=== PATIENT | female | born 1980 | race Caucasian/White ===

== ENCOUNTER 2020-05-06 00:08 | Emergency (ER) | payer BC, OTHER ==
--- NOTE | 2020-05-06 00:40 | ER Document Report ---
ED General - General Chief Complaint: Abdominal Pain Stated Complaint: PAIN Time Seen by Provider: 05/06/20 00:21 Primary Care Provider: MARCIE SANDS PA-C [PHYSICIAN [employer]] - 05/07/20 ROLAN ORDOÑEZ NP [Primary Care Provider] - Follow up as needed - HPI Notes: 39-year-old female with past medical history for cholecystectomy, depression to the emergency department via EMS with complaints of acute onset left upper quadrant abdominal pain. It started while she was on the telephone. She states that it comes in waves. When it comes on it is very intense and she cannot get comfortable. She denies shortness of breath with it. She denies any falls. She denies any nausea or vomiting. She states she has never had a kidney stone. Denies any blood in her urine or urinary complaints. Denies any diarrhea. She was given 50 mcg of fentanyl via EMS. She states that did not really work. She states that she does not want any further pain medicine. - Related Data Allergies/Adverse Reactions: aspirin Allergy (Verified 05/06/20 01:10) Home Medications: Bupropion Past Medical History - General Information source: Patient, Relative - - Social History Smoking Status: Current Every Day Smoker Frequency of alcohol use: Occasional Drug Abuse: None Family History: Reviewed & Not Pertinent Patient has homicidal ideation: No Review of Systems - Review of Systems Constitutional: denies: Chills, Fever EENT: No symptoms reported Cardiovascular: denies: Chest pain, Palpitations, Heart racing, Dizziness, Lightheaded Respiratory: denies: Cough, Short of breath Gastrointestinal: Abdominal pain. denies: Diarrhea, Nausea, Vomiting Genitourinary: Flank pain - LUQ radiating around to the left flank. denies: Frequency, Hematuria Musculoskeletal: denies: Back pain, Joint pain, Joint swelling Skin: See HPI Neurological/Psychological: denies: Seizure, Lost consciousness, Headaches -: Yes All other systems reviewed and negative Physical Exam - Vital signs Vitals: Temp Pulse Resp BP Pulse Ox 97.5 F 95 20 116/61 99 05/06/20 00:13 05/06/20 00:13 05/06/20 00:13 05/06/20 00:13 05/06/20 00:13 Interpretation: Normal - General General appearance: Appears well In distress: Moderate Notes: moderate pain distress. It appears to come in waves. severe but then will calm down. - HEENT Head: Normocephalic, Atraumatic Eyes: Normal Pupils: PERRL Neck: Normal, Supple - Respiratory Respiratory status: No respiratory distress Chest status: Nontender Breath sounds: Normal. No: Rales, Rhonchi, Wheezing Chest palpation: Normal - Cardiovascular Rhythm: Regular Heart sounds: Normal auscultation Murmur: No - Abdominal Inspection: Normal Distension: No distension Bowel sounds: Normal Tenderness: Tender Notes: mild TTP over the LUQ. no CVAT. negative Silva's sign, negative McBurney's point. - Back Back: Normal, Nontender. No: CVA tenderness - Neurological Neuro grossly intact: Yes Cognition: Normal Orientation: AAOx4 [place] Coma Scale Eye Opening: Spontaneous [place] Coma Scale Verbal: Oriented [place] Coma Scale Motor: Obeys Commands [place] Coma Scale Total: 15 Speech: Normal Cranial nerves: Normal Cerebellar coordination: Normal Motor strength normal: LUE, RUE, LLE, RLE Additional motor exam normals: Equal client success specialist Sensory: Normal - Psychological Associated symptoms: Agitated - patient is intially irritable during interview, Anxious - Skin Skin Temperature: Warm Skin Moisture: Dry Skin Color: Normal Course - Re-evaluation Re-evalutation: Impression: Left upper quadrant abdominal pain. Started suddenly tonight. Lab work was very reassuring except for one elevated liver enzyme. Patient has a reassuring abdominal CT. There is no stones or evidence of infection, small bowel obstruction or any other acute abnormality. Suspect that this could be reflux type picture. Involve the patient several medicines to include pain medicines and a full GI cocktail. She declined them all but did except Maalox. We will have her follow-up with her primary care on Thursday without fail. She is to return if she has worsening symptoms here. Patient agrees with the plan. - Vital Signs Vital signs: Temp Pulse Resp BP Pulse Ox 97.5 F 81 14 116/64 100 05/06/20 02:53 05/06/20 02:53 05/06/20 02:53 05/06/20 02:53 05/06/20 02:53 - Laboratory Result Diagrams: 05/06/20 00:42 05/06/20 00:42 Laboratory results interpreted by me: 05/06/20 05/06/20 00:42 00:48 Carbon Dioxide 19 L AST 54 H Urine Ketones TRACE H - EKG Interpretation by Me Additional EKG results interpreted by me: Rate: 76 Rhythm: Sinus rhythm Interpretation: No STEMI, no ST changes, normal axis, no LVH. There is no comparison. Discharge - Discharge Clinical Impression: LUQ abdominal pain Condition: Stable Disposition: HOME, SELF-CARE Instructions: Abdominal Pain ([facility]) Additional Instructions: Follow-up with your primary care without fail on Thursday. Return if you have worsening symptoms such as worsening pain, fevers, passing out, chest pain. Reduce your coffee intake, any acidic foods or spicy foods. Wait 2 hours before laying down after eating. No alcohol. Referrals: ROLAN ORDOÑEZ NP [Primary Care Provider] - Follow up as needed MARCIE SANDS PA-C [PHYSICIAN [employer]] - 05/07/20
[2020-05-06 00:53] LABS: ABSOLUTE EOSINOPHILS # (AUTO) 0.1 10^3/uL (0.0-0.6); ABSOLUTE LYMPHOCYTES (AUTO) 3.9 10^3/uL (0.5-4.7); ABSOLUTE MONOCYTES (AUTO) 0.8 10^3/uL (0.1-1.4); ABSOLUTE NEUT (AUTO) 4.5 10^3/uL (1.7-8.2); BASOPHILS % (AUTO) 0.2 % (0-2); EOSINOPHILS % (AUTO) 1.3 % (0-6); HEMATOCRIT 39.3 % (36.0-47.0); HEMOGLOBIN 13.6 g/dL (12.0-15.5); LYMPHOCYTES % (AUTO) 41.8 % (13-45); MEAN CORPUSCULAR HEMOGLOBIN 32.6 pg (27.0-33.4); MEAN CORPUSCULAR HGB CONC 34.5 g/dL (32.0-36.0); MEAN CORPUSCULAR VOLUME 94 fl (80-97); MONOCYTES % (AUTO) 8.4 % (3-13); PLATELET COUNT 242 10^3/uL (150-450); RED BLOOD COUNT 4.16 10^6/uL (3.72-5.28); RED CELL DISTRIBUTION WIDTH 13.3 % (11.5-14.0); SEGMENTED NEUTROPHILS % (AUTO) 48.3 % (42-78); TOTAL CELLS COUNTED % (AUTO) 100 %; WHITE BLOOD COUNT 9.4 10^3/uL (4.0-10.5)
[2020-05-06 01:03] LABS: APPEARANCE,URINE CLEAR; BILIRUBIN,URINE NEGATIVE (NEGATIVE); COLOR,URINE STRAW; GLUCOSE, URINE NEGATIVE (NEGATIVE); KETONES,URINE TRACE mg/dL (NEGATIVE); PROTEIN,URINE NEGATIVE (NEGATIVE); URINE SPECIFIC GRAVITY 1.004; UROBILINOGEN,URINE NEGATIVE mg/dL (<2.0)
[2020-05-06 01:14] LABS: ALBUMIN 4.1 g/dL (3.5-5.0); ALKALINE PHOSPHATASE 62 U/L (38-126); ANION GAP 13 (5-19); ASPARTATE AMINO TRANSFERASE 54 U/L (14-36); BILIRUBIN,DIRECT 0.1 mg/dL (0.0-0.4); BILIRUBIN,TOTAL 0.4 mg/dL (0.2-1.3); BLOOD UREA NITROGEN 10 mg/dL (7-20); CALCIUM 9.2 mg/dL (8.4-10.2); CARBON DIOXIDE 19 mmol/L (22-30); CHLORIDE 105 mmol/L (98-107); GLUCOSE 99 mg/dL (75-110); TOTAL PROTEIN 6.3 g/dL (6.3-8.2)
--- NOTE | 2020-05-06 02:25 | RADIOLOGY REPORT (SQ) ---
CT abdomen and pelvis without contrast on 05/06/2020 at 2:00 AM CLINICAL INDICATION: Acute onset left upper quadrant pain TECHNIQUE: Multiple axial images are obtained throughout the abdomen and pelvis without the administration of contrast. This exam was performed according to our departmental dose-optimization program, which includes automated exposure control, adjustment of the mA and/or kV according to patient size and/or use of iterative reconstruction technique. Total DLP is 275.66 mGy*cm. COMPARISON: None FINDINGS: Abdomen: The lung bases are clear. The patient is status post cholecystectomy. There are no renal or ureteral stones and no hydronephrosis. The unenhanced solid abdominal organs are unremarkable. There is no abdominal adenopathy. There is no free fluid or free air within the abdomen. The abdominal portion of the GI tract is unremarkable. Pelvis: There is no free fluid in the pelvis. Pelvic organs appear unremarkable by CT. There is no pelvic adenopathy. The pelvic portion of the GI tract including the appendix is unremarkable. No bony abnormality is noted. IMPRESSION: No acute abnormality.
[2020-05-06] MEDS ORDERED: MAG HYDROX/AL HYDROX/SIMETH SUSP 30 ML UDCUP PO ONE (02:34)
[2020-05-06 02:54] VITALS: BP 116/64
--- NOTE | 2020-05-06 18:03 | EKG REPORT ---
SEVERITY:- NORMAL ECG - SINUS RHYTHM : Confirmed by: Valeriano Collins MD 06-May-2020 18:02:01
== END 2020-05-06 02:55 | disposition home or self-care (01) ==
LOC: ER 00:08
DX: R10.12 Left upper quadrant pain (principal); F17.200 Nicotine dependence, unspecified, uncomplicated; R10.812 Left upper quadrant abdominal tenderness; R74.8 Abnormal levels of other serum enzymes; F32.9 Major depressive disorder, single episode, unspecified; Z79.899 Other long term (current) drug therapy; Z90.49 Acquired absence of other specified parts of digestive tract; Z88.8 Allergy status to other drugs, medicaments and biological substances
CPT/HCPCS: 36415; 74176; 80053; 81001; 83690; 84703; 85025; 93005; 93010; 99285